=== PATIENT | male | born 1950 | race Caucasian/White ===

== ENCOUNTER 2023-01-20 12:34 | Outpatient (CLI) | payer MEDICARE, OTHER, SELFPAY ==
--- NOTE | ~2023-01-20 | PE_ITS ---
EXAMINATION: PET_PETPSMAST_PT DATE: 01/20/2023 15:30 INDICATION: Prostate cancer TECHNIQUE: 8.931 mCi of pipflufolastat F-18 (18-F-DCFPyL) was administered i.v. Low dose computed to mography (CT) images were acquired from the base of the brain to the base of the brain to the proxima l thighs for attenuation correction and anatomic localization. Positron emission tomography (PET) dez ges were acquired in the same distribution beginning 107 minutes after injection. Images including fu sed PET/CT images were reconstructed in axial, coronal, and sagittal planes. Automated exposure contr ol technique was employed. The dose-length product was 819.03mGy-cm. COMPARISON: None FINDINGS: Head/neck: Typical pattern of symmetric physiologic increased activity in the parotid and submandibular glands a s well as along the mucosa of the nasal and oral cavities and at the epiglottis. Groundglass density with increased uptake along the superficial margin of the right masseter muscle likely representing a small deposits of ectopic parotid tissue. No pathologically enlarged cervical lymphadenopathy or aria picious foci of increased uptake in the visualized head or neck. Postoperative changes at the maxilla with osseous defect along the hard palate. Wall thickening at the left maxillary sinus with thickene d sclerotic bruno consistent with chronic sinusitis. Chest: Lungs are clear with no suspicious pulmonary nodules, pneumonia, pulmonary edema or pleural effusion. Mild cardiomegaly. Small pericardial effusion. Thoracic aorta is normal in caliber. No pathologicall y enlarged or PSMA avid thoracic lymphadenopathy. Abdomen/pelvis/proximal thighs: Physiologic renal accumulation and excretion of activity in the kidneys, bladder and along portions o f ureters. 6.6 cm photopenic cyst at the lower pole of the left kidney. Additional 8 mm high attenuat ion proteinaceous/hemorrhagic cyst at the right kidney. Bilateral nonobstructing nephrolithiasis with 4 mm stone in upper pole calyx of the right kidney and a few additional tiny bilateral renal stones. Normal degree and slightly heterogenous pattern of increased uptake throughout the liver and spleen without radiologic correlate or dominant PSMA avid lesion. Cholecystectomy clips at the gallbladder f asuncion pancreas and bilateral adrenal glands are normal. Moderate uptake scattered throughout the bowel s with typical duodenal and proximal jejunal predominance and without radiologic correlate, also like ly physiologic. Normal appendix. There are couple small foci of increased activity slightly to the le ft of midline at the prostate, the more cephalad with maximal SUV of 8.0 and the more caudal with max imal SUV of 5.5. No other abnormal foci of increased uptake or pathologically enlarged lymphadenopath y in the abdomen, pelvis or proximal thighs. Musculoskeletal: Severe cervical and thoracic and moderate lumbar spondylosis. Her sclerotic Modic type III degenerati ve endplate changes at C4-C5. Benign-appearing likely degenerative cystic change with thin sclerotic margins at the anterosuperior left femoral head neck junction. No other suspicious lytic, blastic or PSMA avid bone lesions. IMPRESSION: 1. Couple small foci of increased activity slightly to the left of midline in the prostate which coul d be related to the provided history of prostate cancer or urine activity along the prostatic urethra . 2. No other lesions suspicious for metastatic disease. 3. Bilateral nonobstructing nephrolithiasis. Reviewed, dictated and finalized at location B. IMPRESSION: 1. Couple small foci of increased activity slightly to the left of midline in t he prostate which could be related to the provided history of prostate cancer o r urine activity along the pro
== END 2023-01-20 12:35 | disposition home or self-care (01) ==
LOC: ANHIMG 12:40
PROVIDERS: Visit Provider Urology
DX: C61 Malignant neoplasm of prostate (principal); N20.0 Calculus of kidney
CPT/HCPCS: 78815; A9595